=== PATIENT | female | born 1975 | race African-American/Black ===

== ENCOUNTER 2016-11-05 01:44 | Emergency (ER) | payer OTHER ==
[2016-11-05 04:55] LABS: BUN/CREATININE RATIO 15.55; CALCIUM SERUM 9.6 mg/dL (8.4-10.2); CREATININE SERUM 0.9 mg/dL (0.6-1.4); GLOM FILT RATE Estimated 90.8 mL/min (>60); POTASSIUM 4.6 mmol/L (3.5-5.1)
== END 2016-11-05 05:45 | disposition home or self-care (01) ==
LOC: CED 01:44
PROVIDERS: Emergency Medicine
DX: I10 Essential (primary) hypertension (principal); Z91.19 Patient's noncompliance with other medical treatment and regimen; Z88.0 Allergy status to penicillin; F17.200 Nicotine dependence, unspecified, uncomplicated
CPT/HCPCS: 80048; 99283